=== PATIENT | female | born 2000 | race Caucasian/White ===

== ENCOUNTER → 2021-03-03 | Outpatient (CLI) | payer OTHER ==
[2021-03-04 03:06] LABS: RUBELLA AB IGG-REFLAB 4.08 index (Immune >0.99)
== END | disposition home or self-care (01) ==
LOC: LABMN 08:44
PROVIDERS: ATTEND Internal Medicine
DX: Z02.1 Encounter for pre-employment examination (principal)
CPT/HCPCS: 86706; 86735; 86762; 86765; 86787